=== PATIENT | female | born 1960 | race Two or more races ===

== ENCOUNTER 2020-05-21 13:13 | Inpatient (IN) | payer OTHER ==
[2020-05-21 15:08] VITALS: BMI 24.6
[2020-05-21] MEDS ORDERED: BISMUTH SUBSALICYLATE 524 MG/30 ML UD PO PRN (15:08)
[2020-05-21] MEDS ORDERED: MAGNESIUM CITRATE 300 ML BOTTLE PO PRN (15:08)
[2020-05-21] MEDS ORDERED: LORazepam 1 MG TABLET PO PRN (15:08)
[2020-05-21] MEDS ORDERED: NICOTINE POLACRILEX 2 MG GUM BUC PRN (15:08)
[2020-05-21] MEDS ORDERED: ONDANSETRON *ODT* 4 MG TABLET SL PRN (15:08)
[2020-05-21] MEDS ORDERED: ACETAMINOPHEN 325 MG TABLET (FP) PO PRN ×2 (15:08)
[2020-05-21] MEDS ORDERED: IBUPROFEN 400 MG TABLET (FP) PO PRN (15:08)
[2020-05-21] MEDS ORDERED: MAGNESIUM HYDROX 2400MG/30ML ORAL SUSPENSION 30 ML CUP PO PRN (15:08)
[2020-05-21] MEDS ORDERED: MAG HYDROX/AL HYDROX/SIMETH 30 ML UNIT-DOSE CUP PO PRN (15:08)
[2020-05-21] MEDS: LORazepam 2 MG TABLET PO SCH ×2 (17:16→22:31)
[2020-05-21] MEDS: hydrOXYzine PAMOATE 25 MG CAPSULE (FP) PO SCH ×2 (17:16→22:31)
[2020-05-21] MEDS: NICOTINE 7 MG/24 HOURS TOPICAL PATCH TD SCH (17:17)
[2020-05-21] MEDS: PRENATAL VITAMINS W/ FOLIC ACID TABLET (FP) PO SCH (17:17)
[2020-05-21] MEDS: MELATONIN 5 MG TABLETS PO SCH (22:31)
[2020-05-21] MEDS: THIAMINE HCL 100 MG TABLET (FP) PO SCH (22:31)
[2020-05-22] MEDS: LORazepam 2 MG TABLET PO SCH ×4 (06:22→22:29)
[2020-05-22] MEDS: hydrOXYzine PAMOATE 25 MG CAPSULE (FP) PO SCH ×5 (06:22→22:29)
[2020-05-22] MEDS: NICOTINE 7 MG/24 HOURS TOPICAL PATCH TD SCH (10:40)
[2020-05-22] MEDS: PRENATAL VITAMINS W/ FOLIC ACID TABLET (FP) PO SCH (10:40)
[2020-05-22] MEDS: METHOCARBAMOL 500 MG TABLET PO PRN (10:43)
[2020-05-22 13:05] LABS: HEMATOCRIT 31.2 % (32.4-45.2); HEMOGLOBIN 10.2 GM/dL (10.7-15.3); MCH 33.6 pg (25.7-33.7); MCHC 32.7 g/dl (32.0-36.0); MEAN CELL VOLUME 102.8 fl (80-96); MEAN PLT VOLUME 9.2 fl (7.5-11.1); PLATELET COUNT 54 K/MM3 (134-434); RBC 3.04 M/mm3 (3.60-5.2); RDW 15.2 % (11.6-15.6); WHITE BLOOD COUNT 2.4 K/mm3 (4.0-10.0)
[2020-05-22 13:09] LABS: POTASSIUM 3.8 mmol/L (3.5-5.1)
[2020-05-22 13:15] LABS: ALBUMIN 2.4 g/dl (3.4-5.0); BLOOD UREA NITROGEN 12.9 mg/dL (7-18); CALCIUM 7.9 mg/dL (8.5-10.1)
[2020-05-22 13:19] LABS: BILIRUBIN,TOTAL 0.7 mg/dL (0.2-1); CREATININE 0.9 mg/dL (0.55-1.3); TOT PROT 7.3 g/dl (6.4-8.2)
[2020-05-22] MEDS: THIAMINE HCL 100 MG TABLET (FP) PO SCH (22:29)
[2020-05-22] MEDS: MELATONIN 5 MG TABLETS PO SCH (22:30)
[2020-05-22] MEDS: MENTHOL/PHENOL 1 EACH UD MM PRN (22:31)
[2020-05-23] MEDS: LORazepam 1 MG TABLET PO SCH ×4 (06:36→22:27)
[2020-05-23] MEDS: hydrOXYzine PAMOATE 25 MG CAPSULE (FP) PO SCH ×2 (06:37→10:20)
[2020-05-23] MEDS: PRENATAL VITAMINS W/ FOLIC ACID TABLET (FP) PO SCH (10:19)
[2020-05-23] MEDS: NICOTINE 7 MG/24 HOURS TOPICAL PATCH TD SCH (10:20)
[2020-05-23] MEDS ORDERED: hydrOXYzine PAMOATE 25 MG CAPSULE (FP) PO PRN (11:15)
[2020-05-23] MEDS ORDERED: MELATONIN 5 MG TABLETS PO PRN (11:16)
[2020-05-23] MEDS ORDERED: AZITHROMYCIN 250 MG TABLET PO ONE (11:16)
[2020-05-23] MEDS ORDERED: FLU VACCINE (FLULAVAL) PF 60 MCG/0.5 ML SYRINGE 2020-2021 IM ONE (12:00)
[2020-05-23] MEDS: MENTHOL/PHENOL 1 EACH UD MM PRN ×2 (18:04→22:29)
[2020-05-23] MEDS: THIAMINE HCL 100 MG TABLET (FP) PO SCH (22:26)
[2020-05-24] MEDS ORDERED: LORazepam 0.5 MG TABLET PO PRN
[2020-05-24] MEDS: LORazepam 0.5 MG TABLET PO SCH ×3 (06:31→17:49)
[2020-05-24] MEDS: MENTHOL/PHENOL 1 EACH UD MM PRN (06:33)
[2020-05-24] MEDS ORDERED: AZITHROMYCIN 250 MG TABLET PO SCH (10:00)
[2020-05-24] MEDS: NICOTINE 7 MG/24 HOURS TOPICAL PATCH TD SCH (10:48)
[2020-05-24] MEDS: PRENATAL VITAMINS W/ FOLIC ACID TABLET (FP) PO SCH (10:48)
[2020-05-24 11:11] LABS: POTASSIUM 4.3 mmol/L (3.5-5.1)
[2020-05-24 11:15] LABS: ALBUMIN 2.7 g/dl (3.4-5.0); BLOOD UREA NITROGEN 15.5 mg/dL (7-18); CALCIUM 8.3 mg/dL (8.5-10.1)
[2020-05-24 11:18] LABS: CREATININE 0.8 mg/dL (0.55-1.3)
[2020-05-24 11:20] LABS: TOT PROT 7.7 g/dl (6.4-8.2)
[2020-05-24 11:28] LABS: BASO % 0.3 % (0-2.0); EOS % 0.3 % (0-4.5); HEMATOCRIT 33.3 % (32.4-45.2); HEMOGLOBIN 10.7 GM/dL (10.7-15.3); LYMPH % 51.3 % (8-40); MCH 32.8 pg (25.7-33.7); MCHC 32.3 g/dl (32.0-36.0); MEAN CELL VOLUME 101.6 fl (80-96); MEAN PLT VOLUME 8.8 fl (7.5-11.1); MONO % 7.3 % (3.8-10.2); NEUT % 40.8 % (42.8-82.8); PLATELET COUNT 56 K/MM3 (134-434); RBC 3.28 M/mm3 (3.60-5.2); RDW 14.8 % (11.6-15.6); WHITE BLOOD COUNT 2.7 K/mm3 (4.0-10.0)
[2020-05-24] MEDS ORDERED: FLU VACCINE (FLULAVAL) PF 60 MCG/0.5 ML SYRINGE 2020-2021 IM ONE (12:00)
[2020-05-25] MEDS: LORazepam 0.5 MG TABLET PO SCH (00:29)
[2020-05-25] MEDS: THIAMINE HCL 100 MG TABLET (FP) PO SCH (00:29)
[2020-05-25] MEDS ORDERED: LORazepam 0.5 MG TABLET PO ONE (05:00)
[2020-05-25] MEDS: METHOCARBAMOL 500 MG TABLET PO PRN (05:50)
[2020-05-25 06:53] VITALS: BP 101/65; PULSE 68; TEMP 97.5
== END 2020-05-25 09:35 | disposition home or self-care (01) | DRG 774 ==
LOC: YASAS 13:13 → Y6N 15:57
PROVIDERS: ADMIT Allergy & Immunology; ATTEND Allergy & Immunology
PROC: HZ2ZZZZ Detoxification Services for Substance Abuse Treatment (ICD-10-PCS; principal; 2020-05-21)
DX: F10.230 Alcohol dependence with withdrawal, uncomplicated (principal); F14.20 Cocaine dependence, uncomplicated; F17.213 Nicotine dependence, cigarettes, with withdrawal; R94.5 Abnormal results of liver function studies; R07.0 Pain in throat; R00.0 Tachycardia, unspecified; Z59.0 Homelessness
CPT/HCPCS: 36415; 80053; 85025; 85027; 86780; C9803; U0003

== ENCOUNTER 2021-03-22 11:13 | Inpatient (IN) | payer OTHER ==
[2021-03-22 11:46] VITALS: BMI 24.7
[2021-03-22] MEDS ORDERED: BISMUTH SUBSALICYLATE 524 MG/30 ML PO PRN (12:25)
[2021-03-22] MEDS ORDERED: LORazepam 2 MG TABLET PO ONE (12:25)
[2021-03-22] MEDS ORDERED: MAGNESIUM HYDROX 2400MG/30ML ORAL SUSPENSION 30 ML CUP PO PRN (12:25)
[2021-03-22] MEDS ORDERED: NICOTINE 10 MG CARTRIDGE (INHALER) IH PRN (12:25)
[2021-03-22] MEDS ORDERED: MAG HYDROX/AL HYDROX/SIMETH 30 ML UNIT-DOSE CUP PO PRN (12:25)
[2021-03-22] MEDS ORDERED: ONDANSETRON *ODT* 4 MG TABLET SL PRN (12:25)
[2021-03-22] MEDS ORDERED: LORazepam 1 MG TABLET PO PRN (12:25)
[2021-03-22] MEDS ORDERED: METHOCARBAMOL 500 MG TABLET PO PRN (12:25)
[2021-03-22] MEDS ORDERED: MENTHOL/PHENOL 1 EACH UD MM PRN (12:25)
[2021-03-22] MEDS ORDERED: MAGNESIUM CITRATE 300 ML BOTTLE PO PRN (12:25)
[2021-03-22] MEDS ORDERED: LORazepam 2 MG TABLET ONE (13:35)
[2021-03-22] MEDS ORDERED: hydrOXYzine PAMOATE 25 MG CAPSULE (FP) PO ONE (13:35)
[2021-03-22] MEDS: hydrOXYzine PAMOATE 25 MG CAPSULE (FP) PO SCH ×3 (13:39→22:26)
[2021-03-22] MEDS: NICOTINE 21 MG/24 HOURS TOPICAL PATCH TD SCH (20:41)
[2021-03-22] MEDS: LORazepam 2 MG TABLET PO SCH ×2 (20:41→23:10)
[2021-03-22] MEDS: LIDOCAINE 5% TOPICAL PATCH TP SCH (21:02)
[2021-03-22] MEDS: LIDOCAINE PATCH REMOVAL MC SCH (22:15)
[2021-03-22] MEDS: MELATONIN 5 MG TABLETS PO SCH (22:26)
[2021-03-22] MEDS: THIAMINE HCL 100 MG TABLET (FP) PO SCH (22:28)
[2021-03-23] MEDS: hydrOXYzine PAMOATE 25 MG CAPSULE (FP) PO SCH ×2 (05:22→13:17)
[2021-03-23] MEDS: LORazepam 2 MG TABLET PO SCH ×4 (05:22→22:21)
[2021-03-23] MEDS: NICOTINE 21 MG/24 HOURS TOPICAL PATCH TD SCH (12:53)
[2021-03-23] MEDS: LIDOCAINE 5% TOPICAL PATCH TP SCH (12:53)
[2021-03-23] MEDS: PRENATAL VITAMINS W/ FOLIC ACID TABLET (FP) PO SCH (12:58)
[2021-03-23] MEDS: hydrOXYzine PAMOATE 25 MG CAPSULE (FP) PO PRN ×5 (13:12→22:21)
[2021-03-23] MEDS: MELATONIN 5 MG TABLETS PO SCH (22:22)
[2021-03-23] MEDS: THIAMINE HCL 100 MG TABLET (FP) PO SCH (22:22)
[2021-03-23] MEDS: LIDOCAINE PATCH REMOVAL MC SCH (22:22)
[2021-03-24] MEDS: LORazepam 1 MG TABLET PO SCH ×4 (06:38→22:40)
[2021-03-24] MEDS: LIDOCAINE 5% TOPICAL PATCH TP SCH (10:10)
[2021-03-24] MEDS: NICOTINE 21 MG/24 HOURS TOPICAL PATCH TD SCH (10:10)
[2021-03-24] MEDS: PRENATAL VITAMINS W/ FOLIC ACID TABLET (FP) PO SCH (10:11)
[2021-03-24 10:29] LABS: CALCIUM 8.9 mg/dL (8.5-10.1); HEMATOCRIT 35.8 % (32.4-45.2); HEMOGLOBIN 12.4 GM/dL (10.7-15.3); MCH 32.3 pg (25.7-33.7); MCHC 34.8 g/dl (32.0-36.0); MEAN CELL VOLUME 92.8 fl (80-96); MEAN PLT VOLUME 9.3 fl (7.5-11.1); PLATELET COUNT 80 10^3/uL (134-434); RBC 3.86 M/mm3 (3.60-5.2); RDW 13.1 % (11.6-15.6); WHITE BLOOD COUNT 4.1 K/mm3 (4.0-10.0)
[2021-03-24 10:33] LABS: CREATININE 0.7 mg/dL (0.55-1.3)
[2021-03-24 10:34] LABS: BILIRUBIN,TOTAL 0.6 mg/dL (0.2-1); TOT PROT 9.1 g/dl (6.4-8.2)
[2021-03-24] MEDS: LIDOCAINE PATCH REMOVAL MC SCH (22:41)
[2021-03-24] MEDS: MELATONIN 5 MG TABLETS PO SCH (22:41)
[2021-03-24] MEDS: THIAMINE HCL 100 MG TABLET (FP) PO SCH (22:41)
[2021-03-25] MEDS ORDERED: LORazepam 0.5 MG TABLET PO PRN
[2021-03-25] MEDS: LORazepam 0.5 MG TABLET PO SCH ×4 (07:14→22:34)
[2021-03-25] MEDS ORDERED: LIDOCAINE VISCOUS 2% ORAL/TOP 15 ML UNIT-DOSE CUP MM PRN (10:09)
[2021-03-25] MEDS: LIDOCAINE 5% TOPICAL PATCH TP SCH (10:09)
[2021-03-25] MEDS: PRENATAL VITAMINS W/ FOLIC ACID TABLET (FP) PO SCH (10:09)
[2021-03-25] MEDS: NICOTINE 21 MG/24 HOURS TOPICAL PATCH TD SCH (10:09)
[2021-03-25] MEDS: THIAMINE HCL 100 MG TABLET (FP) PO SCH (22:34)
[2021-03-25] MEDS: hydrOXYzine PAMOATE 25 MG CAPSULE (FP) PO PRN (22:34)
[2021-03-25] MEDS: MELATONIN 5 MG TABLETS PO SCH (22:34)
[2021-03-25] MEDS: LIDOCAINE PATCH REMOVAL MC SCH (22:47)
[2021-03-26] MEDS ORDERED: LORazepam 0.5 MG TABLET PO ONE (05:00)
[2021-03-26 09:44] VITALS: BP 138/81; PULSE 101; TEMP 96.8
== END 2021-03-26 09:25 | disposition home or self-care (01) | DRG 774 ==
LOC: YASAS 11:13 → Y3N 15:26
PROVIDERS: ADMIT Allergy & Immunology; ATTEND Allergy & Immunology
PROC: HZ2ZZZZ Detoxification Services for Substance Abuse Treatment (ICD-10-PCS; principal; 2021-03-22)
DX: F10.230 Alcohol dependence with withdrawal, uncomplicated (principal); F14.20 Cocaine dependence, uncomplicated; F17.213 Nicotine dependence, cigarettes, with withdrawal; F19.24 Other psychoactive substance dependence with psychoactive substance-induced mood disorder; K70.30 Alcoholic cirrhosis of liver without ascites; B18.2 Chronic viral hepatitis C; M54.50 Low back pain, unspecified; M25.551 Pain in right hip; G89.29 Other chronic pain; Z99.89 Dependence on other enabling machines and devices
CPT/HCPCS: 36415; 80053; 85027; 86780; 93005; 93010; C9803; U0003; U0005

== ENCOUNTER 2023-06-10 19:55 | Inpatient (IN) | payer OTHER ==
[2023-06-10 20:33] VITALS: BMI 22.6
[2023-06-10] MEDS ORDERED: MAG HYDROX/AL HYDROX/SIMETH 30 ML UNIT-DOSE CUP PO PRN (21:20)
[2023-06-10] MEDS ORDERED: NICOTINE POLACRILEX 2 MG GUM BUC PRN (21:20)
[2023-06-10] MEDS ORDERED: BENZONATATE 200 MG CAPSULE PO PRN (21:20)
[2023-06-10] MEDS ORDERED: POLYETHYLENE GLYCOL (HEALTHYLAX) 3350 17 GM PACKET PO PRN (21:20)
[2023-06-10] MEDS ORDERED: LOPERAMIDE HCL 2 MG CAPSULE PO PRN (21:20)
[2023-06-10] MEDS ORDERED: NALOXONE HCL (KLOXXADO) 8 MG SPRAY NS PRN (21:20)
[2023-06-10] MEDS ORDERED: MAGNESIUM HYDROX 2400MG/30ML ORAL SUSPENSION 30 ML CUP PO PRN (21:20)
[2023-06-10] MEDS ORDERED: NALOXONE HCL 0.4 MG/ML VIAL IM PRN (21:20)
[2023-06-10] MEDS ORDERED: IBUPROFEN 600 MG TABLET (FP) PO PRN (21:20)
[2023-06-10] MEDS ORDERED: IBUPROFEN 400 MG TABLET (FP) PO PRN (21:20)
[2023-06-10] MEDS ORDERED: BENZOCAINE/MENTHOL (CHLORASEPTIC ) LOZENGE MM PRN (21:20)
[2023-06-10] MEDS ORDERED: guaiFENesin 600 MG TABLET.ER (FP) PO PRN (21:20)
[2023-06-10] MEDS ORDERED: ACETAMINOPHEN 325 MG TABLET (FP) PO PRN (21:20)
[2023-06-10] MEDS ORDERED: LORazepam 1 MG TABLET PO PRN (21:25)
[2023-06-10] MEDS: LORazepam 2 MG TABLET PO SCH (22:31)
[2023-06-10] MEDS: THIAMINE HCL 100 MG TABLET (FP) PO SCH (22:31)
[2023-06-10] MEDS: BISMUTH SUBSALICYLATE 524 MG/30 ML PO PRN (22:31)
[2023-06-10] MEDS: MELATONIN 5 MG TABLETS PO SCH (22:31)
[2023-06-11] MEDS: LORazepam 2 MG TABLET PO SCH ×5 (05:08→22:16)
[2023-06-11 10:34] LABS: HEMATOCRIT 31.6 % (32.4-45.2); HEMOGLOBIN 10.6 GM/dL (10.7-15.3); MCH 30.6 pg (25.7-33.7); MCHC 33.7 g/dl (32.0-36.0); MEAN CELL VOLUME 90.8 fl (80-96); MEAN PLT VOLUME 8.5 fl (7.5-11.1); PLATELET COUNT 41 10^3/uL (134-434); RBC 3.47 M/mm3 (3.60-5.2); WHITE BLOOD COUNT 2.4 K/mm3 (4.0-10.0)
[2023-06-11] MEDS: NICOTINE 21 MG/24 HOURS TOPICAL PATCH TD SCH (10:44)
[2023-06-11] MEDS: PRENATAL VITAMINS W/ FOLIC ACID TABLET (FP) PO SCH (10:44)
[2023-06-11 11:30] LABS: CHLORIDE 105 mmol/L (98-107); POTASSIUM 3.6 mmol/L (3.5-5.1); SODIUM 139 mmol/L (136-145)
[2023-06-11 11:37] LABS: ALBUMIN 2.7 g/dl (3.4-5.0); ANION GAP 6 mmol/L (4-13); CALCIUM 7.9 mg/dL (8.5-10.1); CO2 29 mmol/L (21-32); GLUCOSE,RANDOM 97 mg/dL (74-106)
[2023-06-11 11:38] LABS: BLOOD UREA NITROGEN 15.7 mg/dL (7-18); CREATININE 0.8 mg/dL (0.55-1.3); SGOT/AST 281 U/L (15-37); SGPT/ALT 147 U/L (13-61)
[2023-06-11 11:40] LABS: BILIRUBIN,TOTAL 0.6 mg/dL (0.2-1); TOT PROT 8.3 g/dl (6.4-8.2)
[2023-06-11 11:42] LABS: ALK PHOS 242 U/L (45-117)
[2023-06-11] MEDS: THIAMINE HCL 100 MG TABLET (FP) PO SCH (22:16)
[2023-06-11] MEDS: MELATONIN 5 MG TABLETS PO SCH (22:16)
[2023-06-12] MEDS: LORazepam 1 MG TABLET PO SCH ×4 (05:24→22:21)
[2023-06-12] MEDS: NICOTINE 21 MG/24 HOURS TOPICAL PATCH TD SCH (10:12)
[2023-06-12] MEDS: PRENATAL VITAMINS W/ FOLIC ACID TABLET (FP) PO SCH (10:12)
[2023-06-12] MEDS: ONDANSETRON *ODT* 4 MG TABLET SL PRN (17:10)
[2023-06-12] MEDS: MELATONIN 5 MG TABLETS PO SCH (22:21)
[2023-06-12] MEDS: THIAMINE HCL 100 MG TABLET (FP) PO SCH (22:22)
[2023-06-12] MEDS: BISMUTH SUBSALICYLATE 524 MG/30 ML PO PRN (22:22)
[2023-06-13] MEDS ORDERED: LORazepam 0.5 MG TABLET PO PRN
[2023-06-13] MEDS: LORazepam 0.5 MG TABLET PO SCH ×4 (05:57→22:09)
[2023-06-13] MEDS: PRENATAL VITAMINS W/ FOLIC ACID TABLET (FP) PO SCH (10:18)
[2023-06-13] MEDS: NICOTINE 21 MG/24 HOURS TOPICAL PATCH TD SCH (10:18)
[2023-06-13] MEDS: ONDANSETRON *ODT* 4 MG TABLET SL PRN (10:30)
[2023-06-13] MEDS: BISMUTH SUBSALICYLATE 524 MG/30 ML PO PRN (17:16)
[2023-06-13] MEDS: MELATONIN 5 MG TABLETS PO SCH (22:09)
[2023-06-13] MEDS: THIAMINE HCL 100 MG TABLET (FP) PO SCH (22:09)
[2023-06-14] MEDS ORDERED: LORazepam 0.5 MG TABLET PO ONE (05:00)
[2023-06-14 06:31] VITALS: RESP 16
[2023-06-14 08:51] VITALS: BP 128/82; PULSE 77; TEMP 97.3
[2023-06-14] MEDS: PRENATAL VITAMINS W/ FOLIC ACID TABLET (FP) PO SCH (09:37)
[2023-06-14] MEDS: NICOTINE 21 MG/24 HOURS TOPICAL PATCH TD SCH (09:37)
== END 2023-06-14 10:10 | disposition home or self-care (01) | DRG 774 ==
LOC: YASAS 19:55 → Y3N 21:40
PROVIDERS: ADMIT Allergy & Immunology; ATTEND Surgery
PROC: HZ2ZZZZ Detoxification Services for Substance Abuse Treatment (ICD-10-PCS; principal; 2023-06-10)
DX: F10.230 Alcohol dependence with withdrawal, uncomplicated (principal); F14.20 Cocaine dependence, uncomplicated; F17.210 Nicotine dependence, cigarettes, uncomplicated; F31.9 Bipolar disorder, unspecified; F19.24 Other psychoactive substance dependence with psychoactive substance-induced mood disorder; I10 Essential (primary) hypertension; K70.30 Alcoholic cirrhosis of liver without ascites; B18.2 Chronic viral hepatitis C; M54.50 Low back pain, unspecified; G89.29 Other chronic pain; R74.01 Elevation of levels of liver transaminase levels; Z62.810 Personal history of physical and sexual abuse in childhood
CPT/HCPCS: 36415; 80053; 80307; 85027; 86780; 87635; Q0162

== ENCOUNTER 2024-02-20 12:31 | Inpatient (IN) | payer OTHER ==
[2024-02-20 13:23] VITALS: BMI 23.7
[2024-02-20] MEDS ORDERED: MAG HYDROX/AL HYDROX/SIMETH 30 ML UNIT-DOSE CUP PO PRN (14:57)
[2024-02-20] MEDS ORDERED: NALOXONE (NARCAN) HCL 4 MG/0.1 ML SPRAY NS PRN (14:57)
[2024-02-20] MEDS ORDERED: BENZONATATE 200 MG CAPSULE PO PRN (14:57)
[2024-02-20] MEDS ORDERED: LORazepam 1 MG TABLET PO PRN (14:57)
[2024-02-20] MEDS ORDERED: guaiFENesin 600 MG TABLET.ER (FP) PO PRN (14:57)
[2024-02-20] MEDS ORDERED: hydrOXYzine PAMOATE 25 MG CAPSULE (FP) PO PRN (14:57)
[2024-02-20] MEDS ORDERED: BISMUTH SUBSALICYLATE 524 MG/30 ML PO PRN (14:57)
[2024-02-20] MEDS ORDERED: DICYCLOMINE HCL 10 MG CAPSULE PO PRN (14:57)
[2024-02-20] MEDS ORDERED: POLYETHYLENE GLYCOL (HEALTHYLAX) 3350 17 GM PACKET PO PRN (14:57)
[2024-02-20] MEDS ORDERED: MAGNESIUM HYDROX 2400MG/30ML ORAL SUSPENSION 30 ML CUP PO PRN (14:57)
[2024-02-20] MEDS ORDERED: LOPERAMIDE HCL 2 MG CAPSULE PO PRN (14:57)
[2024-02-20] MEDS ORDERED: NICOTINE POLACRILEX 2 MG GUM BUC PRN (14:57)
[2024-02-20] MEDS ORDERED: NALOXONE HCL 0.4 MG/ML VIAL IM PRN (14:57)
[2024-02-20] MEDS ORDERED: BENZOCAINE/MENTHOL (CHLORASEPTIC ) LOZENGE MM PRN (14:57)
[2024-02-20] MEDS: LORazepam 2 MG TABLET PO SCH (17:49)
[2024-02-20] MEDS: THIAMINE 100 MG TABLET PO SCH (22:30)
[2024-02-20] MEDS: MELATONIN 5 MG TABLETS PO SCH (22:30)
[2024-02-21] MEDS: PRENATAL VITAMINS W/ FOLIC ACID TABLET (FP) PO SCH (10:18)
[2024-02-21] MEDS: NICOTINE 14 MG/24 HOURS TOPICAL PATCH TD SCH (10:18)
[2024-02-21] MEDS: ACETAMINOPHEN 325 MG TABLET (FP) PO PRN (17:48)
[2024-02-21] MEDS: ONDANSETRON *ODT* 4 MG TABLET SL PRN (17:53)
[2024-02-21] MEDS: METHOCARBAMOL 500 MG TABLET PO PRN (22:45)
[2024-02-21] MEDS: IBUPROFEN 400 MG TABLET (FP) PO PRN (22:46)
[2024-02-22] MEDS: LORazepam 1 MG TABLET PO SCH (05:42)
[2024-02-23] MEDS ORDERED: LORazepam 0.5 MG TABLET PO PRN
[2024-02-23] MEDS: LORazepam 0.5 MG TABLET PO SCH (05:57)
[2024-02-23] MEDS: IBUPROFEN 600 MG TABLET (FP) PO PRN (10:12)
[2024-02-23 12:13] LABS: HEMATOCRIT 29.8 % (32.4-45.2); HEMOGLOBIN 10.5 GM/dL (10.7-15.3); MCHC 35.3 g/dl (32.0-36.0); MEAN CELL VOLUME 90.5 fl (80-96); MEAN PLT VOLUME 7.7 fl (7.5-11.1); PLATELET COUNT 51 10^3/uL (134-434); RDW 14.6 % (11.6-15.6)
[2024-02-23 13:12] LABS: POTASSIUM 4.2 mmol/L (3.5-5.1)
[2024-02-23 13:15] LABS: CALCIUM 7.9 mg/dL (8.5-10.1)
[2024-02-23 13:16] LABS: ALBUMIN 2.6 g/dl (3.4-5.0)
[2024-02-23 13:18] LABS: CREATININE 0.7 mg/dL (0.55-1.3)
[2024-02-23 13:20] LABS: BILIRUBIN,TOTAL 0.9 mg/dL (0.2-1); TOT PROT 7.6 g/dl (6.4-8.2)
[2024-02-23] MEDS: LORazepam 1 MG TABLET PO SCH (17:33)
[2024-02-23] MEDS: PHENAZOPYRIDINE HCL 100 MG TABLET (FP) PO ONE (23:20)
[2024-02-24 01:17] LABS: EPI CELLS 3 /uL (0-25.1); HYALINE CASTS 2 /uL (0-3.1); PH,URINE 5.5 (5.0-8.0); URINE APPEARANCE CLEAR; URINE BACTERIA 11 /uL (0-1359); URINE BILIRUBIN NEGATIVE (NEGATIVE); URINE COLOR DK YELLOW; URINE GLUCOSE (UA) NEGATIVE (NEGATIVE); URINE KETONE NEGATIVE (NEGATIVE); URINE LEUK ESTERASE NEGATIVE (NEGATIVE); URINE NITRITE NEGATIVE (NEGATIVE); URINE PROTEIN NEGATIVE (NEGATIVE); URINE RBC 33 /uL (0-23.9); URINE WBC 10 /uL (0-25.8)
[2024-02-24] MEDS ORDERED: LORazepam 0.5 MG TABLET PO ONE (05:00)
[2024-02-24] MEDS: LORazepam 0.5 MG TABLET PO ONE (05:26)
[2024-02-24] MEDS: TOLNAFTATE 1% CREAM 15 GM TUBE TP SCH (12:38)
[2024-02-24] MEDS: CLOTRIMAZOLE 1% CREAM TP SCH (13:44)
[2024-02-24] MEDS ORDERED: TOLNAFTATE 1% CREAM 15 GM TUBE TP SCH (22:00)
[2024-02-25] MEDS: LORazepam 0.5 MG TABLET PO ONE (05:34)
[2024-02-25 09:11] VITALS: BP 131/77; PULSE 84; RESP 18; TEMP 97.6
== END 2024-02-25 09:58 | disposition home or self-care (01) | DRG 774 ==
LOC: YASAS 12:31 → Y6N 15:31
PROVIDERS: ADMIT Surgery; ATTEND Surgery
PROC: HZ2ZZZZ Detoxification Services for Substance Abuse Treatment (ICD-10-PCS; principal; 2024-02-20)
DX: F10.230 Alcohol dependence with withdrawal, uncomplicated (principal); F14.20 Cocaine dependence, uncomplicated; F17.210 Nicotine dependence, cigarettes, uncomplicated; F31.9 Bipolar disorder, unspecified; F19.282 Other psychoactive substance dependence with psychoactive substance-induced sleep disorder; F19.24 Other psychoactive substance dependence with psychoactive substance-induced mood disorder; F41.9 Anxiety disorder, unspecified; I10 Essential (primary) hypertension; B35.3 Tinea pedis; K13.0 Diseases of lips; M54.50 Low back pain, unspecified; G89.29 Other chronic pain; Z86.19 Personal history of other infectious and parasitic diseases
CPT/HCPCS: 36415; 80053; 80305; 80307; 81003; 85025; 93005; 93010; Q0162

== ENCOUNTER 2024-03-09 12:08 | Inpatient (IN) | payer OTHER ==
[2024-03-09 12:37] VITALS: BMI 22.6
[2024-03-09] MEDS ORDERED: ONDANSETRON *ODT* 4 MG TABLET SL PRN (13:40)
[2024-03-09] MEDS ORDERED: BISMUTH SUBSALICYLATE 524 MG/30 ML PO PRN (13:40)
[2024-03-09] MEDS ORDERED: IBUPROFEN 400 MG TABLET (FP) PO PRN (13:40)
[2024-03-09] MEDS ORDERED: BENZONATATE 200 MG CAPSULE PO PRN (13:40)
[2024-03-09] MEDS ORDERED: NALOXONE (NARCAN) HCL 4 MG/0.1 ML SPRAY NS PRN (13:40)
[2024-03-09] MEDS ORDERED: MAGNESIUM HYDROX 2400MG/30ML ORAL SUSPENSION 30 ML CUP PO PRN (13:40)
[2024-03-09] MEDS ORDERED: guaiFENesin 600 MG TABLET.ER (FP) PO PRN (13:40)
[2024-03-09] MEDS ORDERED: BENZOCAINE/MENTHOL (CHLORASEPTIC ) LOZENGE MM PRN (13:40)
[2024-03-09] MEDS ORDERED: NALOXONE HCL 0.4 MG/ML VIAL IM PRN (13:40)
[2024-03-09] MEDS ORDERED: LOPERAMIDE HCL 2 MG CAPSULE PO PRN (13:40)
[2024-03-09] MEDS ORDERED: DICYCLOMINE HCL 10 MG CAPSULE PO PRN (13:40)
[2024-03-09] MEDS ORDERED: hydrOXYzine PAMOATE 25 MG CAPSULE (FP) PO PRN (13:40)
[2024-03-09] MEDS ORDERED: MAG HYDROX/AL HYDROX/SIMETH 30 ML UNIT-DOSE CUP PO PRN (13:40)
[2024-03-09] MEDS ORDERED: POLYETHYLENE GLYCOL (HEALTHYLAX) 3350 17 GM PACKET PO PRN (13:40)
[2024-03-09] MEDS ORDERED: LORazepam 1 MG TABLET PO PRN (13:42)
[2024-03-09] MEDS ORDERED: IBUPROFEN 600 MG TABLET (FP) PO ONE (14:05)
[2024-03-09] MEDS: IBUPROFEN 600 MG TABLET (FP) PO PRN (14:08)
[2024-03-09] MEDS: LORazepam 2 MG TABLET PO SCH (17:15)
[2024-03-09] MEDS: MELATONIN 5 MG TABLETS PO SCH (22:42)
[2024-03-09] MEDS: THIAMINE 100 MG TABLET PO SCH (22:42)
[2024-03-10] MEDS: PRENATAL VITAMINS W/ FOLIC ACID TABLET (FP) PO SCH (10:27)
[2024-03-10 13:40] LABS: HEMATOCRIT 34.6 % (32.4-45.2); HEMOGLOBIN 11.6 GM/dL (10.7-15.3); MCH 30.6 pg (25.7-33.7); MCHC 33.6 g/dl (32.0-36.0); MEAN PLT VOLUME 9.2 fl (7.5-11.1); PLATELET COUNT 90 10^3/uL (134-434); RBC 3.81 M/mm3 (3.60-5.2); RDW 14.3 % (11.6-15.6); WHITE BLOOD COUNT 3.4 K/mm3 (4.0-10.0)
[2024-03-10 14:14] LABS: ALBUMIN 3.4 g/dl (3.4-5.0); BLOOD UREA NITROGEN 13.2 mg/dL (7-18)
[2024-03-10 14:17] LABS: CREATININE 0.8 mg/dL (0.55-1.3)
[2024-03-10 14:19] LABS: TOT PROT 9.4 g/dl (6.4-8.2)
[2024-03-10 14:20] LABS: BILIRUBIN,TOTAL 0.7 mg/dL (0.2-1)
[2024-03-10] MEDS: METHOCARBAMOL 500 MG TABLET PO PRN (17:31)
[2024-03-11] MEDS: LORazepam 1 MG TABLET PO SCH (05:38)
[2024-03-12] MEDS ORDERED: LORazepam 0.5 MG TABLET PO PRN
[2024-03-12] MEDS: LORazepam 0.5 MG TABLET PO SCH (05:54)
[2024-03-12] MEDS: LACTULOSE 20 GM/30 ML UDC (FOR ORAL USE ONLY) PO SCH (18:00)
[2024-03-12] MEDS ORDERED: LACTULOSE 20 GM/30 ML UDC (FOR ORAL USE ONLY) PO SCH (18:00)
[2024-03-13] MEDS: LORazepam 0.5 MG TABLET PO ONE (05:47)
[2024-03-13] MEDS: ACETAMINOPHEN 325 MG TABLET (FP) PO PRN (09:16)
[2024-03-13 10:01] VITALS: BP 132/78; PULSE 86; RESP 18; TEMP 97.6
== END 2024-03-13 09:48 | disposition home or self-care (01) | DRG 774 ==
LOC: YASAS 12:08 → Y6N 13:53
PROVIDERS: ADMIT Allergy & Immunology; ATTEND Surgery
PROC: HZ2ZZZZ Detoxification Services for Substance Abuse Treatment (ICD-10-PCS; principal; 2024-03-09)
DX: F10.230 Alcohol dependence with withdrawal, uncomplicated (principal); F14.20 Cocaine dependence, uncomplicated; F17.210 Nicotine dependence, cigarettes, uncomplicated; F19.24 Other psychoactive substance dependence with psychoactive substance-induced mood disorder; F31.9 Bipolar disorder, unspecified; D69.6 Thrombocytopenia, unspecified; B18.2 Chronic viral hepatitis C; K70.30 Alcoholic cirrhosis of liver without ascites; M79.643 Pain in unspecified hand; R79.89 Other specified abnormal findings of blood chemistry; R74.01 Elevation of levels of liver transaminase levels; Z99.89 Dependence on other enabling machines and devices
CPT/HCPCS: 36415; 80053; 80305; 80307; 82140; 85027; 86780; 93005; 93010